=== PATIENT | male | born 1990 | race Asian ===

== ENCOUNTER 2021-03-08 18:01 | Outpatient (CLI) | payer BC ==
[2021-03-08 19:02] LABS: PLATELET COUNT 174 K/uL (142-355)
== END 2021-03-08 21:35 | disposition home or self-care (01) ==
LOC: LABW 18:01
PROVIDERS: ATTEND Podiatrist Foot & Ankle Surgery
DX: Z01.812 Encounter for preprocedural laboratory examination (principal); Z01.818 Encounter for other preprocedural examination; M10.9 Gout, unspecified; E11.9 Type 2 diabetes mellitus without complications
CPT/HCPCS: 36415; 80053; 80323; 82306; 83036; 84550; 85027

== ENCOUNTER 2021-07-21 16:22 | Emergency (ER) | payer OTHER ==
[~2021-07-21] VITALS: Ht 182.9 cm; Wt 102.1 kg
[2021-07-21 16:43] VITALS: TEMP 98.7
[2021-07-21 17:52] LABS: PLATELET COUNT 202 K/uL (142-355)
[2021-07-21 18:02] LABS: POTASSIUM 3.6 mmol/L (3.6-5.2)
[2021-07-21 18:39] VITALS: BP 128/84
== END 2021-07-21 18:39 | disposition home or self-care (01) ==
LOC: ED 16:22
PROVIDERS: Emergency Medicine Emergency Medical Services
DX: J30.89 Other allergic rhinitis (principal); F17.210 Nicotine dependence, cigarettes, uncomplicated
CPT/HCPCS: 80053; 85027; 99283